=== PATIENT | male | born 1970 | race Caucasian/White ===

== ENCOUNTER 2019-06-27 09:59 | Day surgery (SDC) | payer OTHER, MEDICARE ==
[~2019-06-27] VITALS: Ht 177.8 cm; Wt 77.4 kg
[2019-06-27] MEDS ORDERED: PROZAC40 MG PO (10:12)
[2019-06-27] MEDS ORDERED: LIPITOR20 MG PO (10:12)
[2019-06-27] MEDS ORDERED: FARXIGA5 PO (10:19)
[2019-06-27] MEDS ORDERED: PRINIVIL2.5 MG PO (10:19)
[2019-06-27] MEDS ORDERED: BASAGLAR K100 UNIT/1 SQ (10:19)
[2019-06-27] MEDS ORDERED: NEURONTIN400 MG/CAP PO (10:20)
[2019-06-27] MEDS ORDERED: JENTADUETO 2.51 TA1 PO (10:20)
[2019-06-27 10:28] VITALS: BP 133/80; PULSE 94; TEMP 98.4
[2019-06-27 12:40] VITALS: BP 132/79; PULSE 79; TEMP 97.5
--- NOTE | 2019-06-27 12:40 | NUR ---
Pt returns from endo procedure via cart. Pt ambulates from cart to recliner with RN assist. Pt alert and answering questions appropriately. present in room. Monitors on and alarms set. Call light within reach. Report received from CHRISTINA Weiss. Pt requesting water and crackers, and patient stating he's ready to go eat. Pt denies any pain or nausea.
[2019-06-27 12:45] VITALS: BP 137/86; PULSE 75
[2019-06-27 13:00] VITALS: BP 137/84; PULSE 77
--- NOTE | 2019-06-27 13:00 | NUR ---
Pt tolerating food and drink well. No complications voiced.
--- NOTE | 2019-06-27 13:05 | NUR ---
Discharge instructions given to patient and . All questions answered to their satisfaction. Handed to them are a thank you card, discharge instructions, diagnosis information, procedural photos, and a discharge med sheet.
--- NOTE | 2019-06-27 13:10 | NUR ---
Pt transferred out of hospital via wheelchair and this RN assist to waiting private vehicle driven by .
== END 2019-06-27 13:10 | disposition home or self-care (01) ==
LOC: SDCO 09:59
DX: Z12.11 Encounter for screening for malignant neoplasm of colon (principal); K63.5 Polyp of colon; E11.42 Type 2 diabetes mellitus with diabetic polyneuropathy; F32.9 Major depressive disorder, single episode, unspecified; F17.210 Nicotine dependence, cigarettes, uncomplicated; Z79.4 Long term (current) use of insulin
CPT/HCPCS: J2704; J7030

== ENCOUNTER 2020-06-30 12:05 | Emergency (ER) | payer OTHER, MEDICARE ==
[~2020-06-30] VITALS: Ht 177.8 cm; Wt 86.4 kg
[~2020-06-30 12:05] MED LIST: BASAGLAR K100 UNIT/1 SQ; FARXIGA5 PO; JENTADUETO 2.51 TA1 PO; LIPITOR20 MG PO; NEURONTIN400 MG/CAP PO; PRINIVIL2.5 MG PO; PROZAC40 MG PO
[2020-06-30 12:07] VITALS: TEMP 98
[2020-06-30] MEDS ORDERED: CEPHALEXIN500 M1 PO (15:18)
[2020-06-30 15:29] VITALS: BP 139/85; PULSE 91
== END 2020-06-30 15:29 | disposition home or self-care (01) ==
LOC: COL.ER 12:05
DX: S61.213A Laceration without foreign body of left middle finger without damage to nail, initial encounter (principal); M20.012 Mallet finger of left finger(s); Z79.4 Long term (current) use of insulin; X58.XXXA Exposure to other specified factors, initial encounter; Y93.G3 Activity, cooking and baking